=== PATIENT | female | born 1945 | race Two or more races ===

== ENCOUNTER 2020-05-03 17:11 | Emergency (ER) | payer OTHER ==
[~2020-05-03] VITALS: Ht 152.4 cm; Wt 54.4 kg
[2020-05-03] MEDS ORDERED: LISINOPRIL10 MG PO (18:19)
[2020-05-03] MEDS ORDERED: ATORVASTATIN CA10 MG PO (18:19)
[2020-05-03] MEDS ORDERED: METFORMIN HCL500 M4 PO (18:19)
[2020-05-03] MEDS ORDERED: VITAMIN D3250 MCG PO (18:19)
[2020-05-03] MEDS ORDERED: ADULT LOW DOSE81 M1 PO (18:19)
== END 2020-05-03 22:00 | disposition home or self-care (01) ==
LOC: ER 17:11
DX: N81.4 Uterovaginal prolapse, unspecified (principal)

== ENCOUNTER 2020-08-05 11:15 | Inpatient (IN) | payer OTHER ==
[~2020-08-05] VITALS: Ht 157.5 cm; Wt 55.3 kg
[~2020-08-05 11:15] MED LIST: ADULT LOW DOSE81 M1 PO; ATORVASTATIN CA10 MG PO; LISINOPRIL10 MG PO; METFORMIN HCL500 M4 PO; VITAMIN C100 MG PO; VITAMIN D3250 MCG PO
[2020-08-08] MEDS ORDERED: PRESERVISION A1 EAC1 (07:56)
[2020-08-08] MEDS ORDERED: OPTIVE EYE DROP15 ML (07:56)
[2020-08-11] MEDS ORDERED: COLACE100 MG PO (08:19)
[2020-08-11] MEDS ORDERED: Tylenol #3 PO (08:19)
[2020-08-11] MEDS ORDERED: NAPR500T14 PO (08:19)
[2020-08-11] MEDS ORDERED: FLAGYL375 MG PO (08:19)
== END 2020-08-11 08:43 | disposition home or self-care (01) | DRG 742 ==
LOC: O/R 08-08 06:02 → OB/GYN 08-08 06:02
PROVIDERS: Surgery; ADMIT Obstetrics & Gynecology; ATTEND Obstetrics & Gynecology
PROC: 0UQF7ZZ Repair Cul-de-sac, Via Natural or Artificial Opening (ICD-10-PCS; 2020-08-08)
PROC: 0JQC0ZZ Repair Pelvic Region Subcutaneous Tissue and Fascia, Open Approach (ICD-10-PCS; 2020-08-08)
PROC: 0UT27ZZ Resection of Bilateral Ovaries, Via Natural or Artificial Opening (ICD-10-PCS; 2020-08-08)
PROC: 0UT77ZZ Resection of Bilateral Fallopian Tubes, Via Natural or Artificial Opening (ICD-10-PCS; 2020-08-08)
PROC: 0WQNXZZ Repair Female Perineum, External Approach (ICD-10-PCS; 2020-08-08)
PROC: 0TJB8ZZ Inspection of Bladder, Via Natural or Artificial Opening Endoscopic (ICD-10-PCS; 2020-08-08)
PROC: 0UT97ZZ Resection of Uterus, Via Natural or Artificial Opening (ICD-10-PCS; principal; 2020-08-08 16:30)
PROC: 0DQP7ZZ Repair Rectum, Via Natural or Artificial Opening (ICD-10-PCS; 2020-08-08 16:30)
DX: N81.3 Complete uterovaginal prolapse (principal); K91.72 Accidental puncture and laceration of a digestive system organ or structure during other procedure; S36.63XA Laceration of rectum, initial encounter; N72 Inflammatory disease of cervix uteri; N80.0 Endometriosis of uterus; N83.8 Other noninflammatory disorders of ovary, fallopian tube and broad ligament; N83.292 Other ovarian cyst, left side; N83.291 Other ovarian cyst, right side

== ENCOUNTER 2020-08-12 16:50 | Inpatient (IN) | payer OTHER ==
[~2020-08-12] VITALS: Ht 157.5 cm; Wt 54.4 kg
--- NOTE | 2020-08-12 17:07 | NUR ---
SE RECIBE PACIENTE EN AMBULANCIA REFIERE PARAMEDICOS QUE ES UN TRANFER DE TAHIR BORREGO POR DOLOR ABDOMINAL Y NONSTEMI SE RAMYA S/V YS E UBIAC EN AREA AREA DE CHAES PAIN POR ORDEN DE DR PATRICK
--- NOTE | 2020-08-12 17:36 | NUR ---
PACIENTE EVALUADA POR DR. PATRICK. SE TRASLADA A PACIENTE A UNIDAD DE CHEST PAIN. JOHNSON CONECTA A PACIENTE A MONITOR CARDIACO Y A OXIMETRIA DE PUL[place]. SE COLECTAN MUESTRAS DE [place] SU[place]ANNA ORDEN MEDICA Y SE ENVIAN LAS MISMAS AL LABORATORIO. SE ADMINISTRA MEDICACION SUZANNA ORDEN MEDICA Y SE ORIENTA A PACIENTE ACERCA DE INDICACION DE LA MISMA. SE MANTIENE A PACIENTE EN OBSERVACION POR CAMBIOS Y SE ESPERA POR RESULTADOS DE LABORATORIO.
--- NOTE | 2020-08-12 17:40 | NUR ---
AUTUMN INSERTA CATETER VENOSO SIGUIENDO TECNICAS ASEPTICAS EN BRAZO DERECHO, EL MISMO BRUNO DE EDEMA.
--- NOTE | 2020-08-12 18:00 | NUR ---
SE COLOCA LOVENOX 40MG SC A PTE EL CUAL TOLERA. PTE SE CONTINUA MONITORIANDO POR CAMBIOS.
--- NOTE | 2020-08-12 23:28 | NUR ---
SE RECIBE PTE FEMENINA ALERTA Y ORIENTADA X3,CONRECTADA A MONITOR CARDIACO RICA Y OXIMETRIA CONTINUA,PTE CON 3 H/L PATENTES EN PERIFERAL DERECHA PATENTES LIBRES DE EDEMA Y ENROJECIMIENTO,CON(.9NSS@100 Y TRIDIL@3ML/HR),PTE REFIERE NO DOLOR,SOLOA RDOR EN ESTOMADOM POR VOMITOS PREVIOSY SE NOTIFICA A JUNTO A S/V REALIZADOS,PTE REFIERE VA PADDY DESCANSO,Y SE OFRECE COMODIDAD.SE MANTIENE EN VIGILANCIA RICA POR CAMBIOS.
--- NOTE | 2020-08-13 04:54 | NUR ---
SE REALIZAN S/V A PTE Y SE ASISTE A ORINAR,ESTA COOPERA PARA REALIZAR CAMBIOS DE POSICIOBN CADA 2 HRS LO CUAL SE MANTIENE REALIZADO TODA LA NOCHE,PTE EN VIGILANCIA RICA POR CAMBIOS.
== END 2020-08-15 10:00 | disposition designated cancer center or children's hospital (05) | DRG 282 ==
LOC: ER 16:50 → ICU-2 08-13 06:09
PROVIDERS: ADMIT Internal Medicine Cardiovascular Disease; ATTEND Internal Medicine Cardiovascular Disease
PROC: 4A12X4Z Monitoring of Cardiac Electrical Activity, External Approach (ICD-10-PCS; 2020-08-12)
PROC: B24BZZZ Ultrasonography of Heart with Aorta (ICD-10-PCS; 2020-08-12)
PROC: 3E0F7SF Introduction of Other Gas into Respiratory Tract, Via Natural or Artificial Opening (ICD-10-PCS; principal; 2020-08-13)
DX: I21.4 Non-ST elevation (NSTEMI) myocardial infarction (principal); I10 Essential (primary) hypertension; E11.9 Type 2 diabetes mellitus without complications; Z20.822 Contact with and (suspected) exposure to COVID-19; R10.13 Epigastric pain

== ENCOUNTER → 2020-08-12 | Emergency (ER) | payer OTHER ==
[~2020-08-12] MED LIST changes: +COLACE100 MG PO; +FLAGYL375 MG PO; +NAPR500T14 PO; +OPTIVE EYE DROP15 ML; +PRESERVISION A1 EAC1; +Tylenol #3 PO
== END | disposition left against medical advice (07) ==
LOC: ER 18:03
DX: Z53.20 Procedure and treatment not carried out because of patient's decision for unspecified reasons (principal)

== ENCOUNTER 2020-08-16 13:18 | Inpatient (IN) | payer OTHER ==
[~2020-08-16] VITALS: Ht 157.5 cm; Wt 54.4 kg
== END 2020-08-23 09:09 | disposition home or self-care (01) | DRG 444 ==
LOC: ER 13:18 → SURG 08-17 10:31
PROVIDERS: ADMIT Internal Medicine Cardiovascular Disease; ATTEND Internal Medicine Cardiovascular Disease
PROC: BW40ZZZ Ultrasonography of Abdomen (ICD-10-PCS; principal; 2020-08-17)
PROC: 0FJD8ZZ Inspection of Pancreatic Duct, Via Natural or Artificial Opening Endoscopic (ICD-10-PCS; 2020-08-17)
PROC: BF141ZZ Fluoroscopy of Gallbladder, Bile Ducts and Pancreatic Ducts using Low Osmolar Contrast (ICD-10-PCS; 2020-08-17)
PROC: 0FJD8ZZ Inspection of Pancreatic Duct, Via Natural or Artificial Opening Endoscopic (ICD-10-PCS; 2020-08-21)
PROC: BF141ZZ Fluoroscopy of Gallbladder, Bile Ducts and Pancreatic Ducts using Low Osmolar Contrast (ICD-10-PCS; 2020-08-21)
DX: K80.43 Calculus of bile duct with acute cholecystitis with obstruction (principal); K85.10 Biliary acute pancreatitis without necrosis or infection; I21.4 Non-ST elevation (NSTEMI) myocardial infarction; I10 Essential (primary) hypertension